=== PATIENT | female | born 1990 | race African-American/Black ===

== ENCOUNTER 2016-06-08 07:22 | Emergency (ER) | payer OTHER ==
[~2016-06-08] VITALS: Ht 157.5 cm; Wt 61.3 kg
[~2016-06-08 07:22] MED LIST: AMOXICILLI250 MG/5 M PO; AMOXICILLIN500 M1 PO; AMOXICILLIN500 MG PO; AUGMENTIN875 MG PO; DEPO-PROVER150 MG/ML IM; ENDOCET 5-3251 EACH PO; FERROUS SULFAT325 MG PO; IBUPROFEN800 MG PO; LIDOCAINE20 MG/1 M5 PO; MOTRIN600 MG PO; MOTRIN800 MG PO; NAPROSYN500 MG PO; PEN-VEE K,VEET500 MG PO; PERCOCET 5/31 TABLET PO; PREDNISONE10 M1 PO; PRENATAL VITAM1 EAC4 PO; RYBIX ODT50 MG PO; TESSALON PERLE100 MG PO; TRAMADOL HCL50 MG PO; TYLENOL REGULA325 MG PO; ULTRAM50 MG PO
[2016-06-08] MEDS ORDERED: NAPROSYN500 MG PO (07:56)
[2016-06-08] MEDS ORDERED: TRAMADOL HCL50 MG PO (07:56)
[2016-06-08] MEDS ORDERED: AMOXICILLIN500 MG PO (07:56)
[2016-06-08 08:14] VITALS: BP 117/68
== END 2016-06-08 08:15 | disposition home or self-care (01) ==
LOC: EME 07:22
PROC: 3E0T3BZ Introduction of Anesthetic Agent into Peripheral Nerves and Plexi, Percutaneous Approach (ICD-10-PCS; principal; 2016-06-08)
DX: K04.7 Periapical abscess without sinus (principal); S02.5XXA Fracture of tooth (traumatic), initial encounter for closed fracture; F17.210 Nicotine dependence, cigarettes, uncomplicated; Z71.6 Tobacco abuse counseling
CPT/HCPCS: 99281; 99283

== ENCOUNTER 2016-08-07 09:22 | Emergency (ER) | payer OTHER ==
[~2016-08-07] VITALS: Ht 157.5 cm; Wt 62.7 kg
[2016-08-07] MEDS ORDERED: NAPROSYN500 MG PO (10:03)
[2016-08-07] MEDS ORDERED: PEN-VEE K,VEET500 MG PO (10:03)
[2016-08-07 10:18] VITALS: BP 120/75
[2016-08-07] MEDS ORDERED: PEN-VEE K,250 MG/5 M PO (10:20)
== END 2016-08-07 10:24 | disposition home or self-care (01) ==
LOC: EME 09:22
PROC: 3E0T3BZ Introduction of Anesthetic Agent into Peripheral Nerves and Plexi, Percutaneous Approach (ICD-10-PCS; principal; 2016-08-07)
DX: S02.5XXA Fracture of tooth (traumatic), initial encounter for closed fracture (principal); K04.7 Periapical abscess without sinus; Y93.89 Activity, other specified; F17.200 Nicotine dependence, unspecified, uncomplicated
CPT/HCPCS: 99281; 99283

== ENCOUNTER 2017-08-21 23:05 | Emergency (ER) | payer OTHER ==
[~2017-08-21] VITALS: Ht 154.9 cm; Wt 65.8 kg
[~2017-08-21 23:05] MED LIST changes: +PEN-VEE K,250 MG/5 M PO
[2017-08-21 23:09] VITALS: BP 124/82
== END 2017-08-22 02:05 | disposition left against medical advice (07) ==
LOC: EME 23:05
DX: R22.0 Localized swelling, mass and lump, head (principal); Z53.21 Procedure and treatment not carried out due to patient leaving prior to being seen by health care provider